=== PATIENT | male | born 1965 | race Caucasian/White ===

== ENCOUNTER 2025-05-25 07:26 | Day surgery (SDC) | payer OTHER ==
[2025-05-24 10:25] VITALS: BMI 22.9
[2025-05-25] MEDS ORDERED: ONDANSETRON 4 MG/2 ML VIAL IVPUSH PRN (08:42)
[2025-05-25] MEDS ORDERED: MIDAZOLAM HCL 2 MG/2 ML SINGLE DOSE VIAL ONE (08:44)
[2025-05-25] MEDS ORDERED: LACTATED RINGERS SOLUTION 1,000 ML IV SCH (08:45)
[2025-05-25] MEDS ORDERED: KETOROLAC TROMETHAMINE 30 MG/1 ML VIAL ONE (09:05)
[2025-05-25] MEDS ORDERED: ONDANSETRON 4 MG/2 ML VIAL ONE (09:05)
[2025-05-25] MEDS ORDERED: DEXAMETHASONE SOD PHOSPHATE 4 MG/1 ML VIAL ONE (09:05)
[2025-05-25] MEDS ORDERED: BACITRACIN ZINC 15 GM TUBE TOPICAL OINTMENT ONE (09:30)
[2025-05-25] MEDS ORDERED: ACETAMINOPHEN INJECTION 100 ML ONE (10:01)
[2025-05-25] MEDS: ACETAMINOPHEN 1000 MG/100 ML BAG IVPB ONE (10:05)
[2025-05-25 10:24] VITALS: PULSE 51
[2025-05-25 12:39] VITALS: BP 130/80; RESP 19; TEMP 97.9
== END 2025-05-25 12:15 | disposition home or self-care (01) ==
LOC: FASU 07:26
PROVIDERS: ATTEND Urology
PROC: 0VB03ZX Excision of Prostate, Percutaneous Approach, Diagnostic (ICD-10-PCS; principal; 2025-05-25 09:13)
DX: N42.89 Other specified disorders of prostate (principal)
CPT/HCPCS: 88305-TC; 94760